=== PATIENT | female | born 1945 | race Caucasian/White ===

== ENCOUNTER 2021-09-10 11:13 | Emergency (ER) | payer MEDICARE, BC ==
[~2021-09-10] VITALS: Wt 76.8 kg
[2021-09-10 11:36] LABS: HEMATOCRIT 31.7 % (37.0-47.0); HEMOGLOBIN 9.9 g/dL (12.5-16.0); MEAN CELL VOLUME 98 fl (78-100); MEAN CORPUSCULAR HEMOGLOBIN 31 pg (27-31); MEAN CORPUSCULAR HGB CONC 31 g/dL (33-37); MEAN PLATELET VOLUME 11.4 fl (7.4-10.4); PLATELET COUNT 145 K/mm3 (130-400); RED BLOOD COUNT 3.23 M/mm3 (4.10-5.30); RED CELL DISTRIBUTION WIDTH 15.5 % (11.5-14.5)
[2021-09-10 11:47] LABS: ALBUMIN 3.6 g/dL (3.4-4.8); POTASSIUM 4.9 mmol/L (3.5-5.1)
[2021-09-10 11:48] LABS: CALCIUM 10.8 mg/dL (8.3-10.5)
[2021-09-10 11:50] LABS: TOTAL PROTEIN 6.4 g/dL (6.2-8.1)
[2021-09-10 11:53] LABS: D-DIMER 0.55 mg/L FEU (0.15-0.50)
[2021-09-10] MEDS ORDERED: OLMESARTAN MEDOX5 MG PO (11:57)
[2021-09-10] MEDS ORDERED: ALLOPURINOL300 M1 PO (12:01)
[2021-09-10] MEDS ORDERED: RT ALBUTEROL CC18 GM IH (12:01)
[2021-09-10] MEDS ORDERED: TOPCARE ASPIRIN81 M1 PO (12:02)
[2021-09-10] MEDS ORDERED: NORVASC 10MG10 MG PO (12:02)
[2021-09-10] MEDS ORDERED: FAMOTIDINE20 MG PO (12:03)
[2021-09-10] MEDS ORDERED: ATORVASTATIN CA10 MG PO (12:03)
[2021-09-10] MEDS ORDERED: CARVEDILOL3.125 MG PO (12:03)
[2021-09-10] MEDS ORDERED: FUROSEMIDE20 MG PO (12:04)
[2021-09-10] MEDS ORDERED: FLUTICASONE-SA1 EAC4 IH (12:04)
[2021-09-10] MEDS ORDERED: SPIRIVA RE2.5 MCG/Ac IH (12:05)
[2021-09-10] MEDS ORDERED: LEVALBUTEROL TA15 GM IH (12:05)
[2021-09-10] MEDS ORDERED: BASAGLAR K100 UNIT/1 SQ (12:05)
[2021-09-10] MEDS ORDERED: INSULIN AS100 UNIT/3 SQ (12:05)
[2021-09-10] MEDS ORDERED: TERAZOSIN HCL2 M3 PO (12:06)
[2021-09-10 12:08] LABS: LYMPHOCYTE 4 % (20-51); MONOCYTE 2 % (3-10); NEUTROPHILS 91 % (42-75)
[2021-09-10] MEDS ORDERED: CEFDINIR300 MG PO (14:53)
[2021-09-10 15:13] VITALS: BP 159/92
== END 2021-09-10 15:07 | disposition home or self-care (01) ==
LOC: ED 11:13
PROVIDERS: Family Medicine
DX: I50.9 Heart failure, unspecified (principal); N28.9 Disorder of kidney and ureter, unspecified; Z20.822 Contact with and (suspected) exposure to COVID-19; Z99.81 Dependence on supplemental oxygen; Z79.4 Long term (current) use of insulin; Z87.01 Personal history of pneumonia (recurrent); Z28.310 Unvaccinated for COVID-19
CPT/HCPCS: J0696; J1940

== ENCOUNTER 2021-10-05 15:46 | Emergency (ER) | payer MEDICARE, BC ==
[~2021-10-05] VITALS: Wt 76.5 kg
[~2021-10-05 15:46] MED LIST: ALLOPURINOL300 M1 PO; ATORVASTATIN CA10 MG PO; BASAGLAR K100 UNIT/1 SQ; CARVEDILOL3.125 MG PO; CEFDINIR300 MG PO; FAMOTIDINE20 MG PO; FLUTICASONE-SA1 EAC4 IH; FUROSEMIDE20 MG PO; INSULIN AS100 UNIT/3 SQ; LEVALBUTEROL TA15 GM IH; NORVASC 10MG10 MG PO; OLMESARTAN MEDOX5 MG PO; RT ALBUTEROL CC18 GM IH; SPIRIVA RE2.5 MCG/Ac IH; TERAZOSIN HCL2 M3 PO; TOPCARE ASPIRIN81 M1 PO
[2021-10-05] MEDS ORDERED: CARVEDILOL6.25 MG PO (15:56)
[2021-10-05 16:15] LABS: HEMATOCRIT 32.4 % (37.0-47.0); HEMOGLOBIN 9.7 g/dL (12.5-16.0); MEAN CELL VOLUME 101 fl (78-100); MEAN CORPUSCULAR HEMOGLOBIN 30 pg (27-31); MEAN CORPUSCULAR HGB CONC 30 g/dL (33-37); MEAN PLATELET VOLUME 11.7 fl (7.4-10.4); PLATELET COUNT 127 K/mm3 (130-400); RED CELL DISTRIBUTION WIDTH 15.9 % (11.5-14.5); WHITE BLOOD COUNT 4.8 K/mm3 (4.8-10.8)
[2021-10-05 16:28] LABS: ALBUMIN 3.5 g/dL (3.4-4.8); POTASSIUM 4.8 mmol/L (3.5-5.1); SODIUM 144 mmol/L (136-145)
[2021-10-05 16:29] LABS: CALCIUM 10.4 mg/dL (8.3-10.5)
[2021-10-05 16:30] LABS: GLUCOSE 158 mg/dL (65-105)
[2021-10-05 16:31] LABS: TOTAL PROTEIN 6.2 g/dL (6.2-8.1)
[2021-10-05 16:32] LABS: CARBON DIOXIDE 20 mmol/L (23-31); TOTAL BILIRUBIN 1.3 mg/dL (0.2-1.2)
[2021-10-05 16:36] LABS: AST-SGOT 11 U/L (5-34)
[2021-10-05 16:37] LABS: ALT/SGPT 14 U/L (0-55)
[2021-10-05 16:50] LABS: TROPONIN-I < 0.030 ng/mL (<0.030)
[2021-10-05 16:51] LABS: LYMPHOCYTE 15 % (20-51); MONOCYTE 1 % (3-10); NEUTROPHILS 79 % (42-75)
[2021-10-05 18:28] VITALS: BP 152/67
== END 2021-10-05 18:32 | disposition home or self-care (01) ==
LOC: ED 15:46
PROVIDERS: Nurse Practitioner
DX: I50.9 Heart failure, unspecified (principal); E11.22 Type 2 diabetes mellitus with diabetic chronic kidney disease; N28.9 Disorder of kidney and ureter, unspecified; N18.4 Chronic kidney disease, stage 4 (severe); R06.00 Dyspnea, unspecified; Z99.81 Dependence on supplemental oxygen; Z20.822 Contact with and (suspected) exposure to COVID-19; Z79.4 Long term (current) use of insulin
CPT/HCPCS: J1940

== ENCOUNTER 2023-12-20 02:26 | Emergency (ER) | payer MEDICARE, BC ==
[~2023-12-20] VITALS: Wt 76.5 kg
[~2023-12-20 02:26] MED LIST changes: +CARVEDILOL6.25 MG PO
[2023-12-20] MEDS ORDERED: AMIODARONE HCL100 MG PO (02:45)
[2023-12-20] MEDS ORDERED: SENSIPAR30 M1 PO (02:46)
[2023-12-20] MEDS ORDERED: ONDANSETRON HYDR4 MG PO (02:48)
[2023-12-20] MEDS ORDERED: RENVELA0.8 GM/Pac PO (02:49)
[2023-12-20 09:03] VITALS: BP 140/88
== END 2023-12-20 09:00 | disposition home or self-care (01) ==
LOC: ED 02:26
DX: L76.21 Postprocedural hemorrhage of skin and subcutaneous tissue following a dermatologic procedure (principal); Z79.01 Long term (current) use of anticoagulants; Z85.828 Personal history of other malignant neoplasm of skin